=== PATIENT | female | born 1950 | race Caucasian/White ===

== ENCOUNTER 2023-05-11 17:21 | Emergency (ER) | payer OTHER ==
--- OUTSIDE RECORDS SUMMARY | 2023-05-11 17:28 | XMS REPORT | Continuity of Care Document ---
:1950 Author Organization [facility] t Address [address] [place] [id number] Care Team Providers Name Role Phone JUANIS CANALES Primary Care Physician Unavailable Juanis Canales Attending Clinician Unavailable WINSOME HOWARD Attending Clinician Unavailable TEMI CORMIER Attending Clinician Unavailable LAB90 Attending Clinician Unavailable Winsome Diop Attending Clinician YOSELYN ALMODOVAR Attending Clinician Unavailable Only, Ang Db Test Attending Clinician Unavailable Basil Jimenez MD Attending Clinician BASIL JIMENEZ Attending Clinician Unavailable MD ELMIRA Attending Clinician Unavailable Lab, Adc Fam Pob I Attending Clinician Unavailable Loida Perry Attending Clinician LOIDA TUCKER Attending Clinician Unavailable Payers Payer Name Policy Type Policy Number Effective Date Expiration Date S maria esther [employer] 7 [id number] 2020 00:00:00 Mary Care C1 [id number] Common Spiri t [facility] Problems Condition Condition Condition Status Onset Resolution Last Treating Co mments Source Name Details Category Date Date Treatment Clinician Date Gastroesop Gastroesop Disease Active K elsey hageal hageal 4-15 Seybold reflux reflux 00:00: - disease disease 00 Externa l Chronic Chronic Disease Active Mary laryngitis laryngitis 4-15 Se ybold 00:00: - 00 Externa l Chronic Chronic Disease Active Mary obstructiv obstructiv 4-15 Se ybold e e 00:00: pulmonary pulmonary 00 disease disease Bilateral Bilateral Disease Active Melecio y lower lower 4-15 Seybold extremity extremity 00:00: - edema edema 00 Externa l Primary Primary Disease Active Mary hypertensi hypertensi 3-21 Se ybold on on 00:00: - 00 Externa l Hyperlipid Hyperlipid Disease Active Violeta caro emia emia 3- Seybold 00:00: - 00 Externa l Chronic Chronic Disease Active Mary cough cough 06-04 Seybold 00:00: - 00 Externa l Protein-ca Protein-ca Disease Active Violeta shipley violetta 06-03 Seybold malnutriti malnutriti 00:00: on, on, 00 unspecifie unspecifie d severity d severity Simple Simple Disease Active Overview: Mary chronic chronic 4-15 Formattin Seybo ld bronchitis bronchitis 00:00: g of this 00 note might be different from the original. On chronic maint inhalerLa st Assessmen t & Plan: Formattin g of this note might be different from the original. Controlle d Periodic Periodic Disease Active Overview: Elias minawendi headache headache 4-15 Formattin Sey bold syndrome, syndrome, 00:00: g of this - not not 00 note Externa intractabl intractabl might be l e e different from the original. On triamtern e and topiramat eLast Assessmen t & Plan: Formattin g of this note might be different from the original. Controlle d Stage 3a Stage 3a Disease Active Overview: Ke lsey chronic chronic 4-15 Formattin Seybo ld kidney kidney 00:00: g of this - disease disease 00 note Externa might be l different from the original. Due to nsaidsLas t Assessmen t & Plan: Formattin g of this note might be different from the original. Controlle d Allergies Allergies Disease Active Melecio sey 4-15 Seybold 00:00: - 00 Externa l [id number] Stress Problem Active Common incontinen [facility] Allergies, Adverse Reactions, Alerts Allergy Allergy Status Severity Reaction(s) Onset Inactive Treating Comm ents Source Name Type Date Date Clinician Sulfa Propensi Active Nausea and 2018-09 Other Dayana ey Drugs ty to Vomiting 0-17 reaction( Seybo ld adverse 00:00: s): reaction 00 UnknownOt s her reaction( s): Unknown Sulfa Propensi Active Nausea and 2018-09 Other Dayana ey Drugs ty to Vomiting 0-17 reaction( Seybo ld adverse 00:00: s): - reaction 00 UnknownOt Exter na s her l reaction( s): Unknown NO KNOWN Drug Active Univers ALLERGIE Class ity of S [facility] 0 Drug Active Unknown Common allergy [facility] Social History Social Habit Start Date Stop Date Quantity Comments Source Exposure to Yes University of SARS-CoV-2 (event) [facility] Gender identity Mray Beard ybold - External Sexual orientation [address] - External History of Tobacco Common Spirit - Use [facility] Sex Assigned At Common Sp abelardo - [facility] Tobacco use and 2023-02-10 2023-02-10 Smokeless Mary Beard ybold - exposure 00:00:00 00:00:00 tobacco non-user External History of Social 2020-12-27 2020-12-27 Mary Beardybold - function 00:00:00 00:00:00 External Smoking Status Start Date Stop Date Source Unknown if ever smoked [facility] Never smoked tobacco Mary Seyb old - External Medications Ordered Filled Start Stop Current Ordering Indication Dosage Frequency Signature Comments Components Source Medication Medication Date Date Medication? Clinician (SIG) Name Name Vitamin E Yes 100U 1 capsule Melecio y 100 units 5-30 (100 units Seyb old oral 08:30: total) - Capsule 58 every 24 Externa hours l Cholecalcif 0 Yes 1{tbl} 1 tablet Mary cassandra 50 MCG 5-30 every 24 Seyb old (1999) 08:30: hours - oral Tablet 58 Externa l IPRATROPIUM 0 Yes 2{spray 2 sprays Mary BROMIDE NA 5-30 } by nasal Seybo ld 08:30: route 3 - 58 times Externa daily l Calcium-Francesco Yes Take by Melecio veloz sphorus-Vit 5-30 mouth Seybold espinoza D 08:30: - (CITRACAL 58 Externa +D3 OR) l Psyllium Yes Take by Mary (Metamucil) 5-30 mouth Seybold 0.36 g oral 08:30: - Capsule 58 Externa l Probiotic 0 Yes Take by Rosa y Product 5-30 mouth Seybold (Align) 4 08:30: - MG oral 58 Externa Capsule l Acetaminoph 0 Yes 650mg Take 2 Melecio veloz en 5-30 tablets Seybold (TYLENOL) 08:30: (650 mg - 325 MG oral 58 total) by Ext aditi Tablet mouth l tablet every morning Topiramate Yes [id number] 200mg Take 1 Mary 200 MG oral 5-30 tablet Seybol d Tablet 00:00: (200 mg - 00 total) by Externa mouth 2 l times daily Fluconazole 0 2022- No [id number] 150mg Take 1 Mary 150 MG oral 4-25 05-30 tablet Seybo ld Tablet 00:00: 00:00 (150 mg - 00 :00 total) by Externa mouth once l for 1 dose Benzonatate Yes [id number] 100mg Q.[id number] Take 1 Mary (Tessalon 4-24 [id number] capsule S chuckie Franco) 100 00:00: 3D (100 mg - MG oral 00 total) by Externa Capsule mouth 3 l times daily as needed for cough Azithromyci 0 2022- No [id number] Take 2 Mary n 250 MG 4-24 05-30 tablets by Seyb old oral Tablet 00:00: 00:00 mouth on - 00 :00 day 1 then Externa 1 tablet l by mouth daily for 4 days thereafter . methylPREDN 0 2022- No [id number] 1{carlito} Take 1 carlito Hernandez ISolone 4 4-24 05-30 by mouth Seybo ld MG oral 00:00: 00:00 See Admin - Tablet 00 :00 Instructio Externa Therapy ns Use as l Pack directed Valacyclovi 0 Yes [id number] Take 2 K elsey r HCl 1 g 3-22 tabs (at Seybol d oral Tablet 00:00: the onset - 00 of Externa symptoms) l BID for 1 day Triamterene Yes [id number] 1{tbl} Take 1 Mary -HCTZ 1-16 tablet by Seybold 37.5-25 MG 00:00: mouth - oral Tablet 00 daily Externa l NEOMYCIN-PO 2021-09 Yes [id number] 3[drp] Place 3 Mary LYMYXIN-HC, 2-16 drops into Se ybold OTIC, 1 % 00:00: both ears - otic 00 3 times Externa Solution daily l Topiramate 2021-09 202- No [id number] 100mg Take 1 Mary 100 MG oral 0-04 05-30 tablet Seybo ld Tablet 00:00: 00:00 (100 mg - 00 :00 total) by Externa mouth 2 l times daily Sumatriptan Yes [id number] TAKE 1 Mary Succinate 7-25 TABLET BY Seybo ld 100 MG oral 00:00: MOUTH - Tablet 00 DAILY Externa NEEDED FOR l MIGRAINE. guaiFENesin Yes [id number] 5mL Q.[id number] Take 5 mL Mary -Codeine 6-08 [id number] by mouth 3 Seybold 100-10 00:00: 3D times - MG/5ML oral 00 daily as Exte rna Syrup needed for l cough IPRATROPIUM Yes 2{spray 2 sprays Mary BROMIDE NA 6-06 } by nasal Seybo ld 09:00: route 3 29 times daily Vitamin E Yes 1{capsu 1 capsule Mary 100 units 6-06 le} every 24 Seybol d oral 08:49: hours Capsule 41 Cholecalcif Yes 1{tbl} 1 tablet Mary cassandra 50 MCG 6-06 every 24 Seyb old (1999) 08:49: hours oral Tablet 41 Azithromyci 0 Yes [id number] Take 2 Mary n 250 MG 6-06 tablets by Seybo ld oral Tablet 00:00: mouth on 00 day 1 then 1 tablet by mouth daily for 4 days thereafter . Pseudoeph-B Yes [id number] 10mL Q.25D Take 10 mL Mary romphen-DM 6-06 by mouth 4 Sey [facility] ([place] 00:00: times DM) 30-2-10 00 daily as MG/5ML oral needed Syrup Vitamin E Yes 1{capsu 1 capsule Mary 100 units 4-15 le} every 24 Seybol d oral 07:55: hours Capsule 20 Cholecalcif Yes 1{tbl} 1 tablet Mary cassandra 50 MCG 4-15 every 24 Seyb old (1999) 07:55: hours oral Tablet 20 Triamterene Yes [id number] 1{tbl} Take 1 Mary -HCTZ 4-15 tablet by Seybold 37.5-25 MG 00:00: mouth oral Tablet 00 daily Triamterene Yes [id number] 1{tbl} Take 1 Mary -HCTZ 4-15 tablet by Seybold 37.5-25 MG 00:00: mouth oral Tablet 00 daily Albuterol Yes [id number] INHALE 2 Mary HFA 108 (90 4-[address] [facility]) 00:00: INHALATION MCG/ACT IN 00 EVERY 4-6 AERS HOURS NEEDED (CAN USE SPACER) Albuterol 2021- No [id number] INHALE 2 Mary HFA 108 (90 4-06 06-06 PUFFS BY [facility]) 00:00: 00:00 INHALATION MCG/ACT IN 00 :00 EVERY 4-6 AERS HOURS NEEDED (CAN USE SPACER) Triamterene 2021- No [id number] 1{capsu Take 1 Mary -HCTZ 4-05 04-15 le} capsule by Seybold 37.5-25 MG 00:00: 00:00 mouth oral 00 :00 every Capsule morning Loperamide Yes [id number] 2mg Q.25D Take 1 Mary HCl 2 MG 3-21 tablet (2 Seybol d oral Tablet 00:00: mg total) 00 by mouth 4 times daily as needed for diarrhea Loperamide 2021- No [id number] 2mg Q.25D Take 1 Mary HCl 2 MG 3-21 04-15 tablet (2 Seybo ld oral Tablet 00:00: 00:00 mg total) 00 :00 by mouth 4 times daily as needed for diarrhea Azithromyci 2021-0 2- No [id number] Take 2 Mary n 500 MG 3-21 03-26 tablets Seybold oral Tablet 00:00: 04:59 (1,000 mg 00 :00 total) by mouth daily for 1 day, THEN 1 tablet (500 mg total) daily for 3 days. Vitamin E 2021-0 Yes 1{capsu 1 capsule Mary 100 units 2-15 le} every 24 Seybol d oral 07:58: hours Capsule 05 Cholecalcif 2021-0 Yes 1{tbl} 1 tablet Mary cassandra 50 MCG 2-15 every 24 Seyb old (1999) 07:58: hours oral Tablet 05 Vitamin E 2021-0 Yes 1{capsu 1 capsule Mary 100 units 2-15 le} every 24 Seybol d oral 07:58: hours Capsule 05 Cholecalcif 2021-0 Yes 1{tbl} 1 tablet Mary cassandra 50 MCG 2-15 every 24 Seyb old (1999) 07:58: hours oral Tablet 05 Amoxicillin 2021-0 Yes [id number] 1{tbl} Take 1 Mary -Pot 2-15 tablet by Seybold Clavulanate 00:00: mouth 2 875-125 MG 00 times oral Tablet daily Benzonatate 2021-0 Yes [id number] 100mg Q.[id number] Take 1 Mary (Tessalon 2-15 [id number] capsule S eybold Perles) 100 00:00: 3D (100 mg MG oral 00 total) by Capsule mouth 3 times daily as needed for cough Guaifenesin 2021-0 Yes [id number] 1{tbl} Take 1 Mary 1200 MG 2-15 tablet by Seybold oral Tablet 00:00: mouth 2 12 Hour 00 times Sustained daily Release Benzonatate 2021-0 Yes [id number] 100mg Q.[id number] Take 1 Mary (Tessalon 2-15 [id number] capsule S eybold Perles) 100 00:00: 3D (100 mg MG oral 00 total) by Capsule mouth 3 times daily as needed for cough Guaifenesin 2021-0 Yes [id number] 1{tbl} Take 1 Mary 1200 MG 2-15 tablet by Seybold oral Tablet 00:00: mouth 2 12 Hour 00 times Sustained daily Release Benzonatate 2021- No [id number] 100mg Q.[id number] Take 1 Mary (Tessalon 2-15 -15 [id number] capsule Seybold Joan) 100 00:00: 00:00 3D (100 mg MG oral 00 :00 total) by Capsule mouth 3 times daily as needed for cough Guaifenesin 2021- No [id number] 1{tbl} Take 1 Mary 1200 MG 2-15 -15 tablet by Seybol d oral Tablet 00:00: 00:00 mouth 2 12 Hour 00 :00 times Sustained daily Release Amoxicillin 2021- No [id number] 1{tbl} Take 1 Mary -Pot 2-15 -21 tablet by Seybold Clavulanate 00:00: 00:00 mouth 2 875-125 MG 00 :00 times oral Tablet daily Fluconazole 2021- No [id number] 150mg Take 1 Mary 150 MG oral 2-15 16 tablet Seybo ld Tablet 00:00: 05:59 (150 mg 00 :00 total) by mouth once for 1 dose Advair HFA Yes INHALE 2 Melecio sey 115-21 1-11 PUFFS BY Seybold MCG/ACT 00:00: MOUTH inhalation 00 TWICE A Aerosol DAY IN THE MORNING AND EVENING. RINSE MOUTH AFTER USE Omeprazole 2021-0 Yes TAKE 1 Kelse y 20 MG oral 1-11 CAPSULE BY Sey bold Delayed 00:00: MOUTH Release 00 EVERY DAY Capsule 30-60 MINUTES BEFORE A MEAL Advair HFA 2021-0 Yes INHALE 2 Melecio sey 115-21 1-11 PUFFS BY Seybold MCG/ACT 00:00: MOUTH inhalation 00 TWICE A Aerosol DAY IN THE MORNING AND EVENING. RINSE MOUTH AFTER USE Omeprazole 2021-0 Yes TAKE 1 Kelse y 20 MG oral 1-11 CAPSULE BY Sey bold Delayed 00:00: MOUTH Release 00 EVERY DAY Capsule 30-60 MINUTES BEFORE A MEAL Advair HFA 2021-0 Yes INHALE 2 Melecio sey 115-21 1-11 PUFFS BY Seybold MCG/ACT 00:00: MOUTH inhalation 00 TWICE A Aerosol DAY IN THE MORNING AND EVENING. RINSE MOUTH AFTER USE Omeprazole 2022-0 Yes TAKE 1 Kelse y 20 MG oral 1-11 CAPSULE BY Sey bold Delayed 00:00: MOUTH Release 00 EVERY DAY Capsule 30-60 MINUTES BEFORE A MEAL Omeprazole Yes TAKE 1 Kelse y 20 MG oral 1-11 CAPSULE BY Sey bold Delayed 00:00: MOUTH Release 00 EVERY DAY Capsule 30-60 MINUTES BEFORE A MEAL Omeprazole Yes TAKE 1 Kelse y 20 MG oral 1-11 CAPSULE BY Sey bold Delayed 00:00: MOUTH - Release 00 EVERY DAY Externa Capsule 30-60 l MINUTES BEFORE A MEAL Advair HFA 2021- No INHALE 2 Ke lsey 115-21 -11 06-06 PUFFS BY Seybold MCG/ACT 00:00: 00:00 MOUTH inhalation 00 :00 TWICE A Aerosol DAY IN THE MORNING AND EVENING. RINSE MOUTH AFTER USE Ceftriaxone 2020-09- No [id number] 1g K elsey Sodium 208-21 Seybold (ROCEPHIN) 15:15: 15:20 1 g 00 :00 Ceftriaxone 2020-09- No [id number] 1g 1 g, K elsey Sodium 2-04 25-08 intramuscu Seybol d (ROCEPHIN) 15:15: 15:20 lar, ONCE, 1 g 00 :00 1 dose, On Thu08/21/21 at 0915
Fo r IM preparatio n, each 1 gram vial diluted with 2.1 mL 1% lidocaine to make 350 mg/mL. Inject desired dose IM.
Vitamin E 2020-09 Yes 1{capsu 1 capsule Mary 100 units 2-08 le} every 24 Seybol d oral 08:52: hours Capsule 43 Cholecalcif 2020-09 Yes 1{tbl} 1 tablet Mary cassandra 50 MCG 2-08 every 24 Seyb old (1999) 08:52: hours oral Tablet 43 Benzonatate 2020-09 Yes [id number] 100mg Q.[id number] Take 1 Mary (Tessalon 2-08 [id number] capsule S eybold Ebaura) 100 00:00: 3D (100 mg MG oral 00 total) by Capsule mouth 3 times daily as needed for cough Guaifenesin 2020-09 Yes [id number] 1{tbl} Take 1 Mary 1200 MG 2-08 tablet by Seybold oral Tablet 00:00: mouth 2 12 Hour 00 times Sustained daily Release methylPREDN 2020-09 Yes [id number] 1{carlito} Take 1 carlito Mary ISolone 4 2-08 by mouth Seybol d MG oral 00:00: See Admin Tablet 00 Instructio Therapy ns Use as Pack directed methylPREDN 2020- Yes [id number] 1{carlito} Take 1 carlito Mary ISolone 4 2-08 by mouth Seybol d MG oral 00:00: See Admin Tablet 00 Instructio Therapy ns Use as Pack directed methylPREDN 2020-09 Yes [id number] 1{carlito} Take 1 carlito Mary ISolone 4 2-08 by mouth Seybol d MG oral 00:00: See Admin Tablet 00 Instructio Therapy ns Use as Pack directed methylPREDN 2020-09- No [id number] 1{carlito} Take 1 carlito Mary ISolone 4 2-08 04-15 by mouth Seybo ld MG oral 00:00: 00:00 See Admin Tablet 00 :00 Instructio Therapy ns Use as Pack directed Benzonatate 2020-09- No [id number] 100mg Q.[id number] Take 1 Mary (Tessalon 2-08 02-15 [id number] capsule Seybold Perles) 100 00:00: 00:00 3D (100 mg MG oral 00 :00 total) by Capsule mouth 3 times daily as needed for cough Guaifenesin 2020-09- No [id number] 1{tbl} Take 1 Mary 1200 MG 2-08 02-15 tablet by Seybol d oral Tablet 00:00: 00:00 mouth 2 12 Hour 00 :00 times Sustained daily Release Nystatin 2020-09 Yes [id number] Take 5 mL Mary (Nystatin) 2-06 (500,000 Seybo ld 338141 00:00: units UNIT/ML 00 total) by mouth/throa mouth 4 t times Suspension daily Nystatin 2020-09 Yes [id number] Take 5 mL Mary (Nystatin) 2-06 (500,000 Seybo ld [id number] 00:00: units UNIT/ML 00 total) by mouth/throa mouth 4 t times Suspension daily Nystatin 2020-09 Yes [id number] Take 5 mL Mary (Nystatin) 2-06 (500,000 Seybo ld 133047 00:00: units UNIT/ML 00 total) by mouth/throa mouth 4 t times Suspension daily Nystatin 2020-09- No [id number] Take 5 mL Mary (Nystatin) 2-06 04-15 (500,000 Seyb old [id number] 00:00: 00:00 units UNIT/ML 00 :00 total) by mouth/throa mouth 4 t times Suspension daily Sumatriptan 2020-09 Yes [id number] 100mg Q24H TAKE 1 Mary Succinate 1-03 TABLET Seybold 100 MG oral 00:00: (100 MG Tablet 00 TOTAL) BY MOUTH DAILY NEEDED FOR MIGRAINE Sumatriptan 2020-09 Yes [id number] 100mg Q24H TAKE 1 Mary Succinate 1-03 TABLET Seybold 100 MG oral 00:00: (100 MG Tablet 00 TOTAL) BY MOUTH DAILY NEEDED FOR MIGRAINE Sumatriptan 2020-09 Yes [id number] 100mg QD TAKE 1 Mary Succinate 1-03 TABLET Seybold 100 MG oral 00:00: (100 MG Tablet 00 TOTAL) BY MOUTH DAILY NEEDED FOR MIGRAINE Sumatriptan 2020-09 Yes [id number] 100mg QD TAKE 1 Mary Succinate 1-03 TABLET Seybold 100 MG oral 00:00: (100 MG Tablet 00 TOTAL) BY MOUTH DAILY NEEDED FOR MIGRAINE Sumatriptan 2020-09 Yes [id number] 100mg QD TAKE 1 Mary Succinate 1-03 TABLET Seybold 100 MG oral 00:00: (100 MG Tablet 00 TOTAL) BY MOUTH DAILY NEEDED FOR MIGRAINE Nitrofurant 2020-09- No [id number] 100mg Take 1 Mary oin Monohyd 1-01 11-07 capsule Seyb old Macro 100 00:00: 04:59 (100 mg MG oral 00 :00 total) by Capsule mouth 2 times daily for 5 days Nitrofurant 2020-09 Yes [id number] 100mg Take 1 Mary oin Monohyd 0-04 capsule Seybo ld Macro 00:00: (100 mg (Macrobid) 00 total) by 100 MG oral mouth 2 Capsule times daily Nitrofurant 2020-09 Yes [id number] 100mg Take 1 Mary oin Monohyd 0-04 capsule Seybo ld Macro 00:00: (100 mg (Macrobid) 00 total) by 100 MG oral mouth 2 Capsule times daily Nitrofurant 2020-09 Yes [id number] 100mg Take 1 Mary oin Monohyd 0-04 capsule Seybo ld Macro 00:00: (100 mg (Macrobid) 00 total) by 100 MG oral mouth 2 Capsule times daily Nitrofurant 2020-09 Yes [id number] 100mg Take 1 Mary oin Monohyd 0-04 capsule Seybo ld Macro 00:00: (100 mg (Macrobid) 00 total) by 100 MG oral mouth 2 Capsule times daily Nitrofurant 2020-09 Yes [id number] 100mg Take 1 Mary oin Monohyd 0-04 capsule Seybo ld Macro 00:00: (100 mg (Macrobid) 00 total) by 100 MG oral mouth 2 Capsule times daily Nitrofurant 2020-092- No [id number] 100mg Take 1 Mary oin Monohyd 0-04 04-15 capsule Seyb old Macro 00:00: 00:00 (100 mg (Macrobid) 00 :00 total) by 100 MG oral mouth 2 Capsule times daily Azelastine 2020-09 Yes APPLY 2 Dayana ey HCl 0.1 % 0-01 SPRAY BY Seybol d nasal 00:00: NASAL Solution 00 ROUTE 2 TIMES A DAY IN EACH NOSTRIL. THIS IS AN ANTIHISTAM INE NASAL SPRAY Azelastine 2020-09 Yes APPLY 2 Dayana ey HCl 0.1 % 0-01 SPRAY BY Seybol d nasal 00:00: NASAL Solution 00 ROUTE 2 TIMES A DAY IN EACH NOSTRIL. THIS IS AN ANTIHISTAM INE NASAL SPRAY Azelastine 2020-09 Yes APPLY 2 Dayana ey HCl 0.1 % 0-01 SPRAY BY Seybol d nasal 00:00: NASAL Solution 00 ROUTE 2 TIMES A DAY IN EACH NOSTRIL. THIS IS AN ANTIHISTAM INE NASAL SPRAY Azelastine 2020-09 Yes APPLY 2 Dayana ey HCl 0.1 % 0-01 SPRAY BY Seybol d nasal 00:00: NASAL Solution 00 ROUTE 2 TIMES A DAY IN EACH NOSTRIL. THIS IS AN ANTIHISTAM INE NASAL SPRAY Azelastine 2020-09 Yes APPLY 2 Dayana ey HCl 0.1 % 0-01 SPRAY BY Seybol d nasal 00:00: NASAL Solution 00 ROUTE 2 TIMES A DAY IN EACH NOSTRIL. THIS IS AN ANTIHISTAM INE NASAL SPRAY Azelastine 2020-09 Yes APPLY 2 Dayana ey HCl 0.1 % 0-01 SPRAY BY Seybol d nasal 00:00: NASAL Solution 00 ROUTE 2 TIMES A DAY IN EACH NOSTRIL. THIS IS AN ANTIHISTAM INE NASAL SPRAY Azelastine 2020-09- No APPLY 2 Melecio sey HCl 0.1 % 0-01 06-06 SPRAY BY Seybo ld nasal 00:00: 00:00 NASAL Solution 00 :00 ROUTE 2 TIMES A DAY IN EACH NOSTRIL. THIS IS AN ANTIHISTAM INE NASAL SPRAY Omeprazole 0 Yes Mary 40 MG oral 9-20 Seybold Delayed 00:00: Release 00 Capsule Omeprazole 2020-0 Yes Mary 40 MG oral 9-20 Seybold Delayed 00:00: Release 00 Capsule Omeprazole 2020-0 Yes Mary 40 MG oral 9-20 Seybold Delayed 00:00: Release 00 Capsule Omeprazole 2020-0 Yes Mary 40 MG oral 9-20 Seybold Delayed 00:00: Release 00 Capsule Omeprazole 1-0 Yes Mary 40 MG oral 9-20 Seybold Delayed 00:00: Release 00 Capsule Omeprazole 1-0 Yes Mary 40 MG oral 9-20 Seybold Delayed 00:00: Release 00 Capsule Omeprazole 2021-0 2- No Mayr 40 MG oral 9-20 04-15 Seybold Delayed 00:00: 00:00 Release 00 :00 Capsule Denta 5000 0 Yes APPLY PEA Ke lsey Plus 1.1 % 6-29 SIZED Seybold dental 00:00: AMOUNT TO Cream 00 TOOTHBRUSH AND BRUSH FOR 2 MINUTES THEN RINSE WELL TWICE A DAY. Denta 49990 Yes APPLY PEA Ke lsey Plus 1.1 % 6-29 SIZED Seybold dental 00:00: AMOUNT TO Cream 00 TOOTHBRUSH AND BRUSH FOR 2 MINUTES THEN RINSE WELL TWICE A DAY. Denta 5000 0 Yes APPLY PEA Ke lsey Plus 1.1 % 6-29 SIZED Seybold dental 00:00: AMOUNT TO Cream 00 TOOTHBRUSH AND BRUSH FOR 2 MINUTES THEN RINSE WELL TWICE A DAY. Denta 4999 Yes APPLY PEA Ke lsey Plus 1.1 % 6-29 SIZED Seybold dental 00:00: AMOUNT TO Cream 00 TOOTHBRUSH AND BRUSH FOR 2 MINUTES THEN RINSE WELL TWICE A DAY. Denta 4999 Yes APPLY PEA Ke lsey Plus 1.1 % 6-29 SIZED Seybold dental 00:00: AMOUNT TO Cream 00 TOOTHBRUSH AND BRUSH FOR 2 MINUTES THEN RINSE WELL TWICE A DAY. Denta 4999 Yes APPLY PEA Ke lsey Plus 1.1 % 6-29 SIZED Seybold dental 00:00: AMOUNT TO Cream 00 TOOTHBRUSH AND BRUSH FOR 2 MINUTES THEN RINSE WELL TWICE A DAY. Denta 4999- No APPLY PEA K elsey Plus 1.1 % 6-29 04-15 SIZED Seybold dental 00:00: 00:00 AMOUNT TO Cream 00 :00 TOOTHBRUSH AND BRUSH FOR 2 MINUTES THEN RINSE WELL TWICE A DAY. Montelukast Yes [id number] 10mg Take 1 Mary (Singulair) 5-17 tablet (10 Se ybold 10 MG oral 00:00: mg total) Tablet 00 by mouth tablet nightly Montelukast Yes [id number] 10mg Take 1 Mary (Singulair) 5-17 tablet (10 Se ybold 10 MG oral 00:00: mg total) Tablet 00 by mouth tablet nightly Montelukast Yes [id number] 10mg Take 1 Mary (Singulair) 5-17 tablet (10 Se ybold 10 MG oral 00:00: mg total) Tablet 00 by mouth tablet nightly Montelukast 0 Yes [id number] 10mg Take 1 Mary (Singulair) 5-17 tablet (10 Se ybold 10 MG oral 00:00: mg total) Tablet 00 by mouth tablet nightly Montelukast Yes [id number] 10mg Take 1 Mary (Singulair) 5-17 tablet (10 Se ybold 10 MG oral 00:00: mg total) Tablet 00 by mouth tablet nightly Montelukast 0 Yes [id number] 10mg Take 1 Mary (Singulair) 5-17 tablet (10 Se ybold 10 MG oral 00:00: mg total) Tablet 00 by mouth tablet nightly Montelukast 0 2- No [id number] 10mg Take 1 Mary (Singulair) 5-17 04-15 tablet (10 S eybold 10 MG oral 00:00: 00:00 mg total) Tablet 00 :00 by mouth tablet nightly Sumatriptan Yes [id number] 100mg Q24H Take 1 Mary Succinate 4-23 tablet Seybold 100 MG oral 00:00: (100 mg Tablet 00 total) by mouth daily as needed for migraine Sumatriptan Yes [id number] 100mg Q24H Take 1 Mary Succinate 4-23 tablet Seybold 100 MG oral 00:00: (100 mg Tablet 00 total) by mouth daily as needed for migraine Sumatriptan Yes [id number] 100mg Q24H Take 1 Mary Succinate 4-23 tablet Seybold 100 MG oral 00:00: (100 mg Tablet 00 total) by mouth daily as needed for migraine Topiramate Yes [id number] 100mg Take 1 Mary 100 MG oral 4-15 tablet Seybol d Tablet 00:00: (100 mg 00 total) by mouth 2 times daily Triamterene Yes [id number] 1{capsu Take 1 Mary -HCTZ 4-15 le} capsule by Seybold 37.5-25 MG 00:00: mouth oral 00 every Capsule morning Fluticasone Yes [id number] 1{puff} Inhale 1 Mary Furoate-Carol 4-15 puff into Sey bold anterol 00:00: the lungs (Breo 00 daily Ellipta) 100-25 MCG/INH inhalation AEROSOL POWDER, BREATH ACTIVATED Topiramate Yes [id number] 100mg Take 1 Mary 100 MG oral 4-15 tablet Seybol d Tablet 00:00: (100 mg 00 total) by mouth 2 times daily Triamterene Yes [id number] 1{capsu Take 1 Mary -HCTZ 4-15 le} capsule by Seybold 37.5-25 MG 00:00: mouth oral 00 every Capsule morning Fluticasone Yes [id number] 1{puff} Inhale 1 Mary Furoate-Carol 4-15 puff into Sey bold anterol 00:00: the lungs (Breo 00 daily Ellipta) 100-25 MCG/INH inhalation AEROSOL POWDER, BREATH ACTIVATED Topiramate 2020-0 Yes [id number] 100mg Take 1 Mary 100 MG oral 4-15 tablet Seybol d Tablet 00:00: (100 mg 00 total) by mouth 2 times daily Triamterene 2020-0 Yes [id number] 1{capsu Take 1 Mary -HCTZ 4-15 le} capsule by Seybold 37.5-25 MG 00:00: mouth oral 00 every Capsule morning Fluticasone 2020-0 Yes [id number] 1{puff} Inhale 1 Mary Furoate-Carol 4-15 puff into Sey bold anterol 00:00: the lungs (Breo 00 daily Ellipta) 100-25 MCG/INH inhalation AEROSOL POWDER, BREATH ACTIVATED Topiramate 2020-0 Yes [id number] 100mg Take 1 Mary 100 MG oral 4-15 tablet Seybol d Tablet 00:00: (100 mg 00 total) by mouth 2 times daily Topiramate 2020-0 Yes [id number] 100mg Take 1 Mary 100 MG oral 4-15 tablet Seybol d Tablet 00:00: (100 mg 00 total) by mouth 2 times daily Topiramate 2020-0 Yes [id number] 100mg Take 1 Amry 100 MG oral 4-15 tablet Seybol d Tablet 00:00: (100 mg 00 total) by mouth 2 times daily Triamterene 2020-0 Yes [id number] 1{capsu Take 1 Mary -HCTZ 4-15 le} capsule by Seybold 37.5-25 MG 00:00: mouth oral 00 every Capsule morning Fluticasone 2020-0 Yes [id number] 1{puff} Inhale 1 Mary Furoate-Carol 4-15 puff into Sey bold anterol 00:00: the lungs (Breo 00 daily Ellipta) 100-25 MCG/INH inhalation AEROSOL POWDER, BREATH ACTIVATED Topiramate 2020-0 Yes [id number] 100mg Take 1 Mary 100 MG oral 4-15 tablet Seybol d Tablet 00:00: (100 mg 00 total) by mouth 2 times daily Triamterene 2021-0 Yes [id number] 1{capsu Take 1 Mary -HCTZ 4-15 le} capsule by Seybold 37.5-25 MG 00:00: mouth oral 00 every Capsule morning Fluticasone Yes [id number] 1{puff} Inhale 1 Mary Furoate-Carol 4-15 puff into Sey bold anterol 00:00: the lungs (Breo 00 daily Ellipta) 100-25 MCG/INH inhalation AEROSOL POWDER, BREATH ACTIVATED Topiramate Yes [id number] 100mg Take 1 Mary 100 MG oral 4-15 tablet Seybol d Tablet 00:00: (100 mg 00 total) by mouth 2 times daily Triamterene Yes [id number] 1{capsu Take 1 Mary -HCTZ 4-15 le} capsule by Seybold 37.5-25 MG 00:00: mouth oral 00 every Capsule morning Fluticasone Yes [id number] 1{puff} Inhale 1 Mary Furoate-Carol 4-15 puff into Sey bold anterol 00:00: the lungs (Breo 00 daily Ellipta) 100-25 MCG/INH inhalation AEROSOL POWDER, BREATH ACTIVATED Fluticasone 2022- No [id number] 1{puff} Inhale 1 Mary Furoate-Carol 4-15 04-15 puff into Se old anterol 00:00: 00:00 the lungs (Breo 00 :00 daily Ellipta) 100-25 MCG/INH inhalation AEROSOL POWDER, BREATH ACTIVATED Cefdinir Cefdinir Yes [place] not Comm on Amaya defined [facility] MethylPREDN MethylPREDN Yes [place] not Common ISolone ISolone Amaya defined [facility] Alprazolam Alprazolam Yes [place] not Common Amaya defined [facility] Trophamine Trophamine Yes [place] not Common Amaya defined [facility] Triamterene Triamterene Yes [place] not Common -HCTZ -HCTZ Amaya defined [facility] Sumatriptan Sumatriptan Yes [place] not Common Amaya defined [facility] tylenol tylenol No tylenol Triamterene Triamterene No Triamteren -HCTZ -HCTZ e-HCTZ Trophamine Trophamine No Trophamine SUMAtriptan SUMAtriptan No SUMAtripta n Vitamin D Vitamin D No 1{table QD Vitamin D 50 MCG 50 MCG t} 50 MCG (1999 UT) (1999 UT) (1999) Cefdinir Cefdinir No Cefdinir methylPREDN methylPREDN No methylPRED ISolone ISolone NISolone Vitamin E Vitamin E No 1{capsu QD Vitamin E 100 UNIT 100 UNIT le} 100 UNIT Citracal + Citracal + No Citracal + D D D ALPRAZolam ALPRAZolam No ALPRAZolam Immunizations Ordered Immunization Filled Immunization Date Status Commen ts Source Name Name Influenza Virus 2022-05-23 Completed Mary Beard ybold Vaccine, High Dose, 00:00:00 - Ext ernal Age 65 And Up Covid-19 Vaccine 2022-01-07 Completed Mary noguera Other 00:00:00 Covid-19 Vaccine 2022-01-07 Completed Mary noguera Other 00:00:00 - External Influenza Virus 2021-05-01 Completed Mary Se ybold Vaccine, High Dose, 00:00:00 Age 65 And Up Influenza Virus 2021-05-01 Completed Mary Se ybold Vaccine, High Dose, 00:00:00 Age 65 And Up Influenza Virus 2021-05-01 Completed Mary Se ybold Vaccine, High Dose, 00:00:00 Age 65 And Up Influenza Virus 2021-05-01 Completed Mary Se ybold Vaccine, High Dose, 00:00:00 Age 65 And Up Influenza Virus 2021-05-01 Completed Mary Se ybold Vaccine, High Dose, 00:00:00 Age 65 And Up Influenza Virus 2021-05-01 Completed Mary Se ybold Vaccine, High Dose, 00:00:00 Age 65 And Up Influenza Virus 2021-05-01 Completed Mary Se ybold Vaccine, High Dose, 00:00:00 - Ext ernal Age 65 And Up Influenza Virus 2021-05-01 Completed Mary Se ybold Vaccine, High Dose, 00:00:00 Age 65 And Up Influenza Virus 2021-05-01 Completed Mary Se ybold Vaccine, High Dose, 00:00:00 Age 65 And Up Covid-19 Vaccine 2020-12-11 Completed Mary noguera (Moderna), Mrna-lnp, 00:00:00 Ramesh Protein, Pf, 100 Mcg/0.5ml,IM Covid-19 Vaccine 2020-12-11 Completed Mary adamebold (Moderna), Mrna-lnp, 00:00:00 Ramesh Protein, Pf, 100 Mcg/0.5ml,IM Covid-19 Vaccine 2020-12-11 Completed Mary adamebold (Moderna), Mrna-lnp, 00:00:00 Ramesh Protein, Pf, 100 Mcg/0.5ml,IM Covid-19 Vaccine 2020-12-11 Completed Mary adamebold (Moderna), Mrna-lnp, 00:00:00 Ramesh Protein, Pf, 100 Mcg/0.5ml,IM Covid-19 Vaccine 2020-12-11 Completed Mary adamekemi Moderna (Spikevax), 00:00:00 Mrna-lnp, Ramesh Protein, Pf Covid-19 Vaccine 2020-12-11 Completed Mary adamefidenciold Moderna (Spikevax), 00:00:00 Mrna-lnp, Ramesh Protein, Pf Covid-19 Vaccine 2020-12-11 Completed Mary adamefidenciold Moderna (Spikevax), 00:00:00 Mrna-lnp, Ramesh Protein, Pf Covid-19 Vaccine 2020-12-11 Completed Mary adamefidenciold Moderna (Spikevax), 00:00:00 Mrna-lnp, Ramesh Protein, Pf Covid-19 Vaccine 2020-12-11 Completed Mary adamefidenciold Moderna (Spikevax), 00:00:00 - Ext ernal Mrna-lnp, Ramesh Protein, Pf Covid-19 Vaccine 2020-12-11 Completed Mary adamebold (Moderna), Mrna-lnp, 00:00:00 Ramesh Protein, Pf, 100 Mcg/0.5ml,IM Covid-19 Vaccine 2020-12-11 Completed Mary adamebold (Moderna), Mrna-lnp, 00:00:00 Ramesh Protein, Pf, 100 Mcg/0.5ml,IM Covid-19 Vaccine 2020-12-11 Completed Mary adamebold (Moderna), Mrna-lnp, 00:00:00 Ramesh Protein, Pf, 100 Mcg/0.5ml,IM Covid-19 Vaccine 2020-12-11 Completed Mary adamebold (Moderna), Mrna-lnp, 00:00:00 Ramesh Protein, Pf, 100 Mcg/0.5ml,IM Covid-19 Vaccine 2020-11-15 Completed Mary Hillman eybold (Moderna), Mrna-lnp, 00:00:00 Ramesh Protein, Pf, 100 Mcg/0.5ml,IM Covid-19 Vaccine 2020-11-15 Completed Mary Hillman eybold (Moderna), Mrna-lnp, 00:00:00 Ramesh Protein, Pf, 100 Mcg/0.5ml,IM Covid-19 Vaccine 2020-11-15 Completed Mary Hillman eybold (Moderna), Mrna-lnp, 00:00:00 Ramesh Protein, Pf, 100 Mcg/0.5ml,IM Covid-19 Vaccine 2020-11-15 Completed Mary adamebold (Moderna), Mrna-lnp, 00:00:00 Ramesh Protein, Pf, 100 Mcg/0.5ml,IM Covid-19 Vaccine 2020-11-15 Completed Mary adamebold Moderna (Spikevax), 00:00:00 Mrna-lnp, Ramesh Protein, Pf Covid-19 Vaccine 2020-11-15 Completed Mary noguera Moderna (Spikevax), 00:00:00 Mrna-lnp, Ramesh Protein, Pf Covid-19 Vaccine 2020-11-15 Completed Mary noguera Moderna (Spikevax), 00:00:00 Mrna-lnp, Ramesh Protein, Pf Covid-19 Vaccine 2020-11-15 Completed Mary Hillman eybodariusz Moderna (Spikevax), 00:00:00 Mrna-lnp, Ramesh Protein, Pf Covid-19 Vaccine 2020-11-15 Completed Mary Hillman eybold Moderna (Spikevax), 00:00:00 - Ext ernal Mrna-lnp, Ramesh Protein, Pf Covid-19 Vaccine 2020-11-15 Completed Mary Hillman eybold (Moderna), Mrna-lnp, 00:00:00 Ramesh Protein, Pf, 100 Mcg/0.5ml,IM Covid-19 Vaccine 2020-11-15 Completed Mary Hillman eybold (Moderna), Mrna-lnp, 00:00:00 Ramesh Protein, Pf, 100 Mcg/0.5ml,IM Covid-19 Vaccine 2020-11-15 Completed Mary S eybold (Moderna), Mrna-lnp, 00:00:00 Ramesh Protein, Pf, 100 Mcg/0.5ml,IM Covid-19 Vaccine 2020-11-15 Completed Mary Tahira adamebold (Moderna), Mrna-lnp, 00:00:00 Ramesh Protein, Pf, 100 Mcg/0.5ml,IM Pneumococcal Vaccine, 2019-05-01 Completed Melecio sey Seybold Polysaccharide 00:00:00 Pneumococcal Vaccine, 2019-05-01 Completed Melecio sey Seybold Polysaccharide 00:00:00 Pneumococcal Vaccine, 2019-05-01 Completed Melecio sey Seybold Polysaccharide 00:00:00 Pneumococcal Vaccine, 2019-05-01 Completed Melecio sey Seybold Polysaccharide 00:00:00 Pneumococcal Vaccine, 2019-05-01 Completed Melecio sey Seybold Polysaccharide 00:00:00 Pneumococcal Vaccine, 2019-05-01 Completed Melecio sey Seybold Polysaccharide 00:00:00 Pneumococcal Vaccine, 2019-05-01 Completed Melecio sey Seybold Polysaccharide 00:00:00 - External Pneumococcal Vaccine, 2019-05-01 Completed Melecio sey Seybold Polysaccharide 00:00:00 Pneumococcal Vaccine, 2019-05-01 Completed Melecio sey Seybold Polysaccharide 00:00:00 Shingles IM 2019-03-12 Completed Mary Seybol d (Shingrix) 00:00:00 Shingles IM 2019-03-12 Completed Mary Seybol d (Shingrix) 00:00:00 Shingles IM 2019-03-12 Completed Mary Seybol d (Shingrix) 00:00:00 Shingles IM 2019-03-12 Completed Mary Seybol d (Shingrix) 00:00:00 Shingles IM 2019-03-12 Completed Mary Seybol d (Shingrix) 00:00:00 Shingles IM 2019-03-12 Completed Mary Seybol d (Shingrix) 00:00:00 Shingles IM 2019-03-12 Completed Mary Seybol d (Shingrix) 00:00:00 - External Shingles IM 2019-03-12 Completed Mary Seybol d (Shingrix) 00:00:00 Shingles IM 2019-03-12 Completed Mary Seybol d (Shingrix) 00:00:00 Influenza Virus 2018-09-14 Completed Mary Se ybold Vaccine, age 6 months 00:00:00 and up Influenza Virus 2018-09-14 Completed Mary Se ybold Vaccine, age 6 months 00:00:00 and up Influenza Virus 2018-09-14 Completed Mary Se ybold Vaccine, age 6 months 00:00:00 and up Influenza Virus 2018-09-14 Completed Mary Se ybold Vaccine, age 6 months 00:00:00 and up Influenza Virus 2018-09-14 Completed Mary Se ybold Vaccine, age 6 months 00:00:00 and up Influenza Virus 2018-09-14 Completed Mary Se ybold Vaccine, age 6 months 00:00:00 and up Influenza Virus 2018-09-14 Completed Mary Se ybold Vaccine, age 6 months 00:00:00 - E xternal and up Influenza Virus 2018-09-14 Completed Mary Se ybold Vaccine, age 6 months 00:00:00 and up Influenza Virus 2018-09-14 Completed Mary Se ybold Vaccine, age 6 months 00:00:00 and up Pneumococcal Vaccine, 2018-03-16 Completed Melecio sey Seybold Polysaccharide 00:00:00 Pneumococcal Vaccine, 2018-03-16 Completed Melecio sey Seybold Polysaccharide 00:00:00 Pneumococcal Vaccine, 2018-03-16 Completed Melecio sey Seybold Polysaccharide 00:00:00 Pneumococcal Vaccine, 2018-03-16 Completed Melecio sey Seybold Polysaccharide 00:00:00 Pneumococcal Vaccine, 2018-03-16 Completed Melecio sey Seybold Polysaccharide 00:00:00 Pneumococcal Vaccine, 2018-03-16 Completed Melecio sey Seybold Polysaccharide 00:00:00 Pneumococcal Vaccine, 2018-03-16 Completed Melecio sey Seybold Polysaccharide 00:00:00 - External Pneumococcal Vaccine, 2018-03-16 Completed Melecio sey Seybold Polysaccharide 00:00:00 Pneumococcal Vaccine, 2018-03-16 Completed Melecio sey Seybold Polysaccharide 00:00:00 Tdap- (Boostrix, 2018-03-15 Completed Mary hurstld Adacel) 00:00:00 Tdap- (Boostrix, 2018-03-15 Completed Mary S eybold Adacel) 00:00:00 Tdap- (Boostrix, 2018-03-15 Completed Mary S eybold Adacel) 00:00:00 Tdap- (Boostrix, 2018-03-15 Completed Mary S eybold Adacel) 00:00:00 Tdap- (Boostrix, 2018-03-15 Completed Mary S eybold Adacel) 00:00:00 Tdap- (Boostrix, 2018-03-15 Completed Mary S eybold Adacel) 00:00:00 Tdap- (Boostrix, 2018-03-15 Completed Mary S eybold Adacel) 00:00:00 Tdap- (Boostrix, 2018-03-15 Completed Mary S eybold Adacel) 00:00:00 - External Tdap- (Boostrix, 2018-03-15 Completed Mary S eybold Adacel) 00:00:00 Shingles IM 2017-09-14 Completed Mary Seybol d (Shingrix) 00:00:00 Shingles IM 2017-09-14 Completed Mary Seybol d (Shingrix) 00:00:00 Shingles IM 2017-09-14 Completed Mary Seybol d (Shingrix) 00:00:00 Shingles IM 2017-09-14 Completed Mary Seybol d (Shingrix) 00:00:00 Shingles IM 2017-09-14 Completed Mary Seybol d (Shingrix) 00:00:00 Shingles IM 2017-09-14 Completed Mary Seybol d (Shingrix) 00:00:00 Shingles IM 2017-09-14 Completed Mary Seybol d (Shingrix) 00:00:00 - External Shingles IM 2017-09-14 Completed Mary Seybol d (Shingrix) 00:00:00 Shingles IM 2017-09-14 Completed Mary Seybol d (Shingrix) 00:00:00 Influenza Virus 2016-05-18 Completed Mary Se ybold Vaccine, age 6 months 00:00:00 and up Influenza Virus 2016-05-18 Completed Mary Se ybold Vaccine, age 6 months 00:00:00 and up Influenza Virus 2016-05-18 Completed Mary Se ybold Vaccine, age 6 months 00:00:00 and up Influenza Virus 2016-05-18 Completed Mary Se ybold Vaccine, age 6 months 00:00:00 and up Influenza Virus 2016-05-18 Completed Mary Se ybold Vaccine, age 6 months 00:00:00 and up Influenza Virus 2016-05-18 Completed Mary Se ybold Vaccine, age 6 months 00:00:00 and up Influenza Virus 2016-05-18 Completed Mary Se ybold Vaccine, age 6 months 00:00:00 and up Influenza Virus 2016-05-18 Completed Mary Se ybold Vaccine, age 6 months 00:00:00 - E xternal and up Influenza Virus 2016-05-18 Completed Mary Se ybold Vaccine, age 6 months 00:00:00 and up Vital Signs Vital Name Observation Time Observation Value Comments Source Systolic blood 2023-02-10 13:23:00 108 mm[Hg] Mary Seybold - pressure External Diastolic blood 2023-02-10 13:23:00 60 mm[Hg] Rosa wong Seybold - pressure External Heart rate 2023-02-10 13:23:00 60 /min Mary Tahira adamebodariusz - External Body temperature 2023-02-10 13:23:00 36.56 Radha Dayana adame Seybold - External Respiratory rate 2023-02-10 13:23:00 16 /min Dayana ey Seybold - External Body height 2023-02-10 13:23:00 162.6 cm Mary Tahira adamebodariusz - External Body weight 2023-02-10 13:23:00 52.98 kg Mary Tahira adamebold - External BMI 2023-02-10 13:23:00 20.05 kg/m2 Mary Tahira adamebold - External Oxygen saturation in 2023-02-10 13:23:00 100 /min Mary Way - Arterial blood by External Pulse oximetry Systolic blood 2022-02-17 13:44:00 96 mm[Hg] Mary Seybold pressure Diastolic blood 2022-02-17 13:44:00 56 mm[Hg] Kelse y Seybold pressure Heart rate 2022-02-17 13:44:00 81 /min Mary S eybold Body temperature 2022-02-17 13:44:00 36.39 Radha Dayana ey Seybold Respiratory rate 2022-02-17 13:44:00 14 /min Dayana ey Seybold Body height 2022-02-17 13:44:00 152.4 cm Mary S eybold Body weight 2022-02-17 13:44:00 50.803 kg Mary S eybold BMI 2022-02-17 13:44:00 21.87 kg/m2 Mary S eybold Systolic blood 2021-12-27 12:49:00 98 mm[Hg] Mary Seybold pressure Diastolic blood 2021-12-27 12:49:00 50 mm[Hg] Kelse y Seybold pressure Heart rate 2021-12-27 12:49:00 67 /min Mary S eybold Body temperature 2021-12-27 12:49:00 36.56 Radha Dayana ey Seybold Respiratory rate 2021-12-27 12:49:00 14 /min Dayana ey Seybold Body height 2021-12-27 12:49:00 152.4 cm Mary S eybold Body weight 2021-12-27 12:49:00 51.256 kg Mary S eybold BMI 2021-12-27 12:49:00 22.07 kg/m2 Mary S eybold Systolic blood 2021-12-02 14:41:00 104 mm[Hg] Mary Seybold pressure Diastolic blood 2021-12-02 14:41:00 60 mm[Hg] Kelse y Seybold pressure Heart rate 2021-12-02 14:41:00 93 /min Mary S eybold Body temperature 2021-12-02 14:41:00 36.56 Radha Dayana ey Seybold Respiratory rate 2021-12-02 14:41:00 14 /min Dayana ey Seybold Body height 2021-12-02 14:41:00 152.4 cm Mary S eybold Body weight 2021-12-02 14:41:00 49.896 kg Mary S eybold BMI 2021-12-02 14:41:00 21.48 kg/m2 Mary S eybold Systolic blood 2021-10-29 13:50:00 86 mm[Hg] Mary Seybold pressure Diastolic blood 2021-10-29 13:50:00 50 mm[Hg] Kelse y Seybold pressure Heart rate 2021-10-29 13:50:00 93 /min Mary Hillman eybold Body temperature 2021-10-29 13:50:00 36.67 Radha Dayana ey Seybold Respiratory rate 2021-10-29 13:50:00 14 /min Dayana ey Seybold Body height 2021-10-29 13:50:00 152.4 cm Mary Hillman eybold Body weight 2021-10-29 13:50:00 52.164 kg Mary Hillman eybold BMI 2021-10-29 13:50:00 22.46 kg/m2 Mary S eybold Systolic blood 2021-08-21 14:51:00 107 mm[Hg] Mary Seybold pressure Diastolic blood 2021-08-21 14:51:00 62 mm[Hg] Kelse y Seybold pressure Heart rate 2021-08-21 14:51:00 84 /min Mary Hillman eybold Body temperature 2021-08-21 14:51:00 37.33 Radha Dayana ey Seybold Respiratory rate 2021-08-21 14:51:00 14 /min Dayana adame Seybold Body height 2021-08-21 14:51:00 152.4 cm Mary Hillman eybold Body weight 2021-08-21 14:51:00 52.073 kg Mary Hillman eybold BMI 2021-08-21 14:51:00 22.42 kg/m2 Mary adamebold Oxygen saturation in 2021-08-21 14:51:00 98 /min Mary Beardybdanuta Arterial blood by Pulse oximetry height 2021-08-01 08:40:00 63 [in_i] [facility] weight 2021-08-01 08:40:00 119 [lb_av] [facility] temperature 2021-08-01 08:40:00 97.8 [degF] [facility] bmi 2021-08-01 08:40:00 21.08 kg/m2 [facility] - [facility] oximetry 2021-08-01 08:40:00 96 % [facility] - [facility] blood pressure 2021-08-01 08:40:00 129 mm[Hg] [facility] blood pressure 2021-08-01 08:40:00 62 mm[Hg] [facility] diastolic [facility] Systolic blood 2021-07-15 15:32:00 118 mm[Hg] Mary Seybold pressure Diastolic blood 2021-07-15 15:32:00 62 mm[Hg] Kelse y Seybold pressure Heart rate 2021-07-15 15:32:00 67 /min Mary S eybold Body temperature 2021-07-15 15:32:00 36 Radha Dayana ey Seybold Respiratory rate 2021-07-15 15:32:00 16 /min Dayana ey Seybold Body height 2021-07-15 15:32:00 152.4 cm Mary S eybold Body weight 2021-07-15 15:32:00 54.432 kg Mary S eybold BMI 2021-07-15 15:32:00 23.44 kg/m2 Mary S eybold Systolic blood 2021-06-17 13:02:00 104 mm[Hg] Mary Seybold pressure Diastolic blood 2021-06-17 13:02:00 52 mm[Hg] Kelse y Seybold pressure Heart rate 2021-06-17 13:02:00 75 /min Mary S eybold Body temperature 2021-06-17 13:02:00 36.17 Radha Dayana ey Seybold Respiratory rate 2021-06-17 13:02:00 16 /min Dayana ey Seybold Body height 2021-06-17 13:02:00 165.1 cm Mary S eybold Body weight 2021-06-17 13:02:00 52.164 kg Mary S eybold BMI 2021-06-17 13:02:00 19.14 kg/m2 Mary S eybold Systolic blood 2021-06-04 13:12:00 94 mm[Hg] Mary Seybold pressure Diastolic blood 2021-06-04 13:12:00 60 mm[Hg] Meleciose [address] pressure Heart rate 2021-06-04 13:12:00 83 /min Mary noguera Body temperature 2021-06-04 13:12:[address] Respiratory rate 2021-06-04 13:12:00 20 /min Dayana Way Body height 2021-06-04 13:12:00 165.1 cm Mary noguera Body weight 2021-06-04 13:12:00 53.343 kg Mary noguera BMI 2021-06-04 13:12:00 19.57 kg/m2 Mary noguera Procedures Procedure Date / Time Performed Performing Clinician Sourc e URINALYSIS NONAUTO W/O 2021-07-15 15:38:00 Winsome Howard Seguillaume SCOPE URINALYSIS NONAUTO W/O 2021-06-17 13:28:00 Winsome Howard SCOPE Encounters Start End Encounter Admission Attending Care Care Encounter Source Date/Time Date/Time Type Type Clinicians Facility Department ID [facility]09 [id number] Common 14:14:52 [id number] 2021-10-09 [facility] [id number] Common 14:14:17 Juanis [id number] [facility] 2023-05-02 2023-05-02 Outpatient MARY HOWARD [id number] Mary 00:00:00 00:00:00 WINSOME Seybol d 2023-04-10 2023-04-10 Outpatient MARY HOWARD [id number] Mary 00:00:00 00:00:00 WINSOME Seybol d 2023-04-09 2023-04-09 Outpatient MARY HERNANDEZ [id number] Mary 00:00:00 00:00:00 Seybol d 2023-04-06 2023-04-06 Outpatient TEMI CORMIER [id number] Mary 09:00:00 09:00:00 Seybol d 2023-04-03 2023-04-03 Outpatient MARY HOWARD [id number] Mary 00:00:00 00:00:00 WINSOME Seybol d 2023-04-02 2023-04-02 Outpatient HUNDL, MARY HERNANDEZ [id number] Mary 00:00:00 00:00:00 WINSOME Seybol d 2023-04-01 2023-04-01 Outpatient HUNDL, MARY HERNANDEZ [id number] Mary 00:00:00 00:00:00 WINSOME Seybol d 2023-02-17 2023-02-17 Outpatient HUNDL, MARY HERNANDEZ [id number] Mary 00:00:00 00:00:00 WINSOME Seybol d 2023-02-11 2023-02-11 Outpatient MARY HERNANDEZ [id number] Mary 00:00:00 00:00:00 Seybol d 2023-02-10 2023-02-10 Outpatient LAB90 MARY HERNANDEZ [id number] Mary 09:45:00 09:45:00 Seybol d 2023-02-10 2023-02-10 Outpatient HUNDL, MARY HERNANDEZ [id number] Mary 08:30:00 08:30:00 WINSOME Seybol d 2023-01-06 2023-01-06 Outpatient HUNDL, MARY HERNANDEZ [id number] Mary 00:00:00 00:00:00 WINSOME Seybol d 2023-01-06 2023-01-06 Outpatient HUNDL, MARY HERNANDEZ [id number] Mary 00:00:00 00:00:00 WINSOME Seybol d 2023-01-05 2023-01-05 Outpatient HUNDL, MARY HERNANDEZ [id number] Mary 00:00:00 00:00:00 WINSOME Seybol d 2022-12-02 2022-12-02 Outpatient HUNDL, MARY HERNANDEZ [id number] Mary 00:00:00 00:00:00 WINSOME Seybol d 2022-10-07 2022-10-07 Outpatient HUNDL, MARY HERNANDEZ [id number] Mary 00:00:00 00:00:00 WINSOME Seybol d 2022-09-29 2022-09-29 Outpatient HUNDL, MARY HERNANDEZ [id number] Mary 00:00:00 00:00:00 WINSOME Seybol d 2022-08-29 2022-08-29 Outpatient HUNDL, MARY HERNANDEZ [id number] Mary 00:00:00 00:00:00 WINSOME Seybol d 2022-08-25 2022-08-25 Outpatient HUNDL, MARY HERNANDEZ [id number] Mary 00:00:00 00:00:00 WINSOME Seybol d 2022-06-16 2022-06-16 Outpatient HUNDL, MARY HERNANDEZ [id number] Mary 00:00:00 00:00:00 WINSOEM Seybol d 2022-05-26 2022-05-26 Outpatient HUNDL, MARY HERNANDEZ [id number] Mary 00:00:00 00:00:00 WINSOME Seybol d 2022-03-24 2022-03-24 Outpatient HUNDL, MARY HERNANDEZ [id number] Mary 00:00:00 00:00:00 WINSOME Seybol d 2022-03-24 2022-03-24 Outpatient HUNDL, MARYALBERTO HERNANDEZ [id number] Mary 00:00:00 00:00:00 WINSOME Seybol d 2022-03-13 2022-03-13 Outpatient HUNDL, MARY HERNANDEZ [id number] Mary 00:00:00 00:00:00 WINSOME Seybol d 2022-02-19 2022-02-19 Outpatient HUNDL, MARY HERNANDEZ [id number] Mary 00:00:00 00:00:00 WINSOME Seybol d 2022-02-19 2022-02-19 Outpatient HUNDL, MARY HERNANDEZ [id number] Mary 00:00:00 00:00:00 WINSOME Seybol d 2022-02-17 2022-02-17 Office Hundl Palacio [id number] Mary 08:30:00 09:00:00 Visit Winsome Loyd [id number] Se guillaume [id number] 2022-02-17 2022-02-17 Outpatient HUNDL, MARY HERNANDEZ [id number] Mary 08:30:00 08:30:00 WINSOME Seybol d 2022-01-17 2022-01-17 Outpatient YOSELYN ALMODOVAR MARY HERNANDEZ [id number] Mary 00:00:00 00:00:00 Seybol d 2022-01-08 2022-01-08 Outpatient BESTDelfin MARY HERNANDEZ [id number] Mary 00:00:00 00:00:00 WINSOME Seybol d 2021-12-27 2021-12-27 Outpatient LAB90 MARY HERNANDEZ [id number] Mary 09:15:00 09:15:00 Seybol d 2021-12-27 2021-12-27 Office [facility] sweet [id number] Mary 08:00:00 09:00:00 Visit Winsome Loyd [id number] Se guillaume [id number] 2021-12-26 2021-12-26 Outpatient ANITA, MARY HERNANDEZ [id number] Mary 00:00:00 00:00:00 WINSOME Seybol d 2021-12-12 2021-12-12 Outpatient LAB90 MARY HERNANDEZ [id number] Mary 08:20:00 08:20:00 Seybol d 2021-12-10 2021-12-10 Outpatient LAB90 MARY HERNANDEZ [id number] Mary 08:15:00 08:15:00 Seybol d 2021-12-06 2021-12-06 Outpatient MAYR HOWARD [id number] Mary 00:00:00 00:00:00 WINSOME Seybol d 2021-12-04 2021-12-04 Outpatient MARY HOWARD [id number] Mary 00:00:00 00:00:00 WINSOME Seybol d 2021-12-04 2021-12-04 Outpatient MARY HOWARD [id number] Mary 00:00:00 00:00:00 WINSOME Seybol d 2021-12-03 2021-12-03 Outpatient MARY HOWARD [id number] Mary 08:30:00 08:30:00 WINSOME Seybol d 2021-12-02 2021-12-02 Office Hundl, Palacio 1.2.840.114 [id number] Mary 10:00:00 10:30:00 Visit Winsome Loyd 350.1.13.13 Se ybold 1.2.7.2.686 [id number] 2021-10-29 2021-10-29 Office Temi Howard [id number] Mary 08:00:00 08:30:00 Visit Winsome Loyd 350.1.13.13 Se ybold 1.2.7.2.686 [id number] 2021-09-23 2021-09-23 Outpatient MARY HERNANDEZ [id number] Mary 00:00:00 00:00:00 Seybol d 2021-09-11 2021-09-11 Laboratory Only, Ang Db Test [facility] 1.2.8 40.114 [id number] Univers 09:30:00 09:45:00 Only Tony Basil [facility] 350.1.13.10 [facility] 4.2.7.2.686 Phil as ELIZABETH?BLEA [id number] [address] MEDICAL OFFICE [facility] 2021-09-11 2021-09-11 Outpatient R [facility] [id number] Univers 09:30:00 09:30:00 [id number] [facility] 2021-09-11 2021-09-11 [facility] [id number] Univers 09:30:00 09:30:00 BASIL [facility] 2021-08-21 2021-08-21 Office Temi Howard 1.2.840.114 [id number] Mary 09:00:00 09:30:00 Visit Winsome Loyd 350.1.13.13 Se ybold 1.2.7.2.686 [id number] 2021-08-19 2021-08-19 Outpatient MARY HOWARD [id number] Mary 00:00:00 00:00:00 WINSOME Seybol d 2021-08-19 2021-08-19 Outpatient MARY HOWARD [id number] Mary 00:00:00 00:00:00 WINSOME Seybol d 2021-08-01 2021-08-01 [facility] [id number] Co mmon 00:00:00 00:00:00 VISIT NEW Spir it PT LEVEL 3 - [facility] 2021-07-29 2021-07-29 Outpatient MARY HOWARD [id number] Mary 00:00:00 00:00:00 WINSOME Seybol d 2021-07-25 2021-07-25 Outpatient MARY HOWARD [id number] Mary 00:00:00 00:00:00 WINSOME Seybol d 2021-07-25 2021-07-25 Outpatient ANITA MARY HERNANDEZ [id number] Mary 00:00:00 00:00:00 WINSOME Seybol d 2021-07-23 2021-07-23 Outpatient LAB90 MARY HERNANDEZ [id number] Mary 08:10:00 08:10:00 Seybol d 2021-07-18 2021-07-18 Outpatient LAB90 MARY HERNANDEZ [id number] Mary 11:40:00 11:40:00 Seybol d 2021-07-18 2021-07-18 Outpatient ANITA MARY HERNANDEZ [id number] Mary 00:00:00 00:00:00 WINSOME Seybol d 2021-07-17 2021-07-17 Outpatient YOSELYN ALMODOVAR [id number] Mary 10:00:00 10:00:00 Seybol d 2021-07-17 2021-07-17 Outpatient MARY HOWARD [id number] Mary 00:00:00 00:00:00 WINSOME Seybol d 2021-07-15 2021-07-15 Office Temi Howard [id number] Mary 10:09:44 10:39:44 Visit Winsome Loyd [id number] Se ybold [id number] 2021-06-26 2021-06-26 Outpatient YOSELYN ALMODOVAR [id number] Mary 00:00:00 00:00:00 Seybol d 2021-06-17 2021-06-17 Office Temi Howard [id number] Mary 07:53:26 08:23:26 Visit Winsome Loyd [id number] Se ybold [id number] 2021-06-04 2021-06-04 Office Temi Howard [id number] Mary 08:08:32 08:38:32 Visit Winsome Loyd [id number] Se ybold [id number] [id number] 2021-05-28 2021-05-28 Outpatient MARY HOWARD [id number] Mary 08:00:00 08:00:00 WINSOME Seybol d 2021-05-04 2021-05-04 Outpatient YOSELYN ALMODOVAR [id number] Mary 00:00:00 00:00:00 Seybol d 2021-04-09 2021-04-09 Outpatient LESLI HERNANDEZ [id number] Mary 00:00:00 00:00:00 MD MARIA GUADALUPE Seybol d 2021-04-02 2021-04-02 Outpatient YOSELYN ALMODOVAR 100 [id number] Mary 00:00:00 00:00:00 Seybol d 2021-04-02 2021-04-02 Outpatient YOSELYN ALMODOVAR [id number] Mary 00:00:00 00:00:00 Seybol d 2021-03-28 2021-03-28 Outpatient YOSELYN ALMODOVAR 100 [id number] Mary 00:00:00 00:00:00 Seybol d 2020-09-18 2020-09-18 Laboratory Lab, Adc Fam Pob I [facility] [id number]. [id number] Univers 09:07:26 09:27:26 Only Loida Tucker [facility] [id number] itmarvin ortiz [place] [id number] Phil as Professio [id number] Ut dical nal 044 [facility] 2020-09-18 2020-09-18 Outpatient EUGENIE CHAPARROMB [facility] [id number] Univers 09:20:00 09:20:00 LOIDA payan [facility] 2019-06-30 2019-06-30 Outpatient Oxana Daiglet [id number] Common 09:30:00 09:30:00 [facility] Results Test Description Test Time Test Comments Results Result Comments Source URINALYSIS NONAUTO W/O SCOPE 2021-07-15 15:38:00 Test Item Value Reference Range Interpretation Comme nts UD KETONES (test code = neg 5-160 147899) UD GLUCOSE (test code = neg 100-2000 397018) UD PROTEIN (test code = neg Trace - 2000 mg/dL 668663) UD LEUKOCYTES (test code = neg Trace - Large @ 2 958933) min. UD NITRITE (test code = neg Neg. - Pos. @ 60 635791) sec. UD UROBILINOGEN (test code = 0.2 mg/dL 0.2-8 222613) UD PH (test code = 016796) See_Comment [Automated message] The system which ge nerated this result tra nsmitted reference range : 5.0 - 8.5 @ 60 sec.. The reference range was not used to interpr et this result as normal/abnormal . UD BLOOD (test code = 966006) moderate Neg. - Large @ 60 sec. UD SPECIFIC GRAVITY (test See_Comment [ Automated message] The code = 822996) system which generated this result tra nsmitted reference range : 1.000 - 1.030 @ 45 sec. . The reference range was not used to interpr et this result as normal/abnormal . UD BILIRUBIN (test code = neg Neg. - Large @ 45 489554) sec. Lab Interpretation (test code Abnormal = 65980-7) Mary BeardyboldURINALYSIS NONAUTO W/O [id number] 13:28:00 Test Item Value Reference Range Interpretation Comments UD KETONES (test code = neg 5-160 582264) UD GLUCOSE (test code = neg 100-2000 971221) UD PROTEIN (test code = neg Trace - 2000 mg/dL 805148) UD LEUKOCYTES (test large Trace - Large @ 2 code = 870392) min. UD NITRITE (test code = neg Neg. - Pos. @ 60 737921) sec. UD UROBILINOGEN (test 0.2 mg/dL 0.2-8 code = 656465) UD PH (test code = See_Comment [Automat ed 132037) message] The sy stem which generated this result transmitted reference range : 5.0 - 8.5 @ 60 sec.. The refer ence range was not u sed to interpret th is result as normal/abnormal . UD BLOOD (test code = large Neg. - Large @ 60 808241) sec. UD SPECIFIC GRAVITY See_Comment [Automa rhonda (test code = 177283) message ] The system which generated this result transmitted reference range : 1.000 - 1.030 @ 45 sec.. The refer ence range was not u sed to interpret th is result as normal/abnormal . UD BILIRUBIN (test code neg Neg. - Large @ 45 = 772921) sec. Lab Interpretation Abnormal (test code = 21554-4) Mary Way
--- NOTE | 2023-05-11 19:32 | RAD REPORT ---
EXAM DESCRIPTION: RAD - Chest Single View - 05/11/2023 7:27 pm CLINICAL HISTORY: RIB PAIN - RIGHT Chest pain. COMPARISON: Chest Pa And Lat (2 Views) dated 02/18/2022; Chest Pa And Lat (2 Views) dated 10/14/2019; C hest Pa And Lat (2 Views) dated 09/28/2018; CHEST PA AND LAT 2 VIEW dated 11/23/2007 FINDINGS: Portable technique limits examination quality. The lungs are emphysematous but grossly clear. The heart is normal in size. No displaced fractures. IMPRESSION: No acute intrathoracic process suspected.
--- NOTE | 2023-05-11 19:34 | RAD REPORT ---
EXAM DESCRIPTION: RAD - Elbow Right 3 View - 05/11/2023 7:27 pm CLINICAL HISTORY: PAIN COMPARISON: Elbow Right 2 View dated 04/11/2015; Elbow Right 3 View dated 04/08/2015 FINDINGS: Hardware is noted in the olecranon. No acute fracture or dislocation.
--- NOTE | 2023-05-11 19:45 | ER ---
Nurse's Notes [facility] Name: Bee Humphrey Age: 72 yrs Sex: Female : 1950 Arrival Date: 05/11/2023 Time: 17:21 Bed IW4 Private MD: Diagnosis: Fall on same level from slipping, tripping and stumbling without subsequent striking against object;Contusion of right elbow;Chest pain, unspecified-right chest wall Presentation: 05/11 18:09 Chief complaint: Patient states: "Around 1630 today, I tripped while walking and fell. iw I hit my chest and right elbow. It's swollen and hurts. I just feel sore. Coronavirus screen: At this time, the client does not indicate any symptoms associated with coronavirus-19. Ebola Screen: No symptoms or risks identified at this time. Initial Sepsis Screen: Does the patient meet any 2 criteria? No. Patient's initial sepsis screen is negative. Does the patient have a suspected source of infection? No. Patient's initial sepsis screen is negative. Risk Assessment: Do you want to hurt yourself or someone else? Patient reports no desire to harm self or others. Onset of symptoms was May 11, 2023. 18:09 Method Of Arrival: Ambulatory iw 18:09 Acuity: SUN 4 iw Triage Assessment: 18:12 General: Appears uncomfortable, Behavior is calm, cooperative. Pain: Complains of pain iw in chest and right arm Pain does not radiate. Pain Quality of pain is described as aching, Pain began suddenly, Is continuous. Neuro: Brandt Agitation-Sedation Scale (RASS): 0 - Alert and Calm. Derm: Bruising that is dark purple, on right arm. Historical: - Allergies: 18:10 Sulfa (Sulfonamide Antibiotics); iw - Home Meds: 18:10 None [Active]; iw - PMHx: 18:10 None; iw - PSHx: 18:10 right elbow; iw - Immunization history:: Adult Immunizations up to date. - Social history:: Smoking status: Patient denies any tobacco usage or history of. Vital Signs: 18:09 BP 136 / 76; Pulse 80; Resp 18; Temp 98.2; Pulse Ox 100% on R/A; Weight 48.99 kg; iw Height 5 ft. 5 in. ; 18:09 Body Mass Index 17.97 (48.99 kg, 165.1 cm) iw ED Course: 17:24 Patient arrived in ED. mg5 17:48 [facility] kb 17:48 Gautam Uribe MD is Attending Physician. kb 18:10 Triage completed. iw 18:10 Arm band placed on. iw 19:28 Elbow Right 3 View XRAY In Process Unspecified. EDMS 19:29 Chest Single View XRAY In Process Unspecified. EDMS Administered Medications: No medications were administered Outcome: 19:45 Discharge ordered by . kb 19:58 Discharged to home ambulatory, with family. me1 19:58 Condition: stable 19:58 Discharge instructions given to patient, by provider Instructed on discharge instructions, follow up and referral plans. 19:59 Patient left the ED. me1 Signatures: Dispatcher [employer] EDMS Ev Loyd FNP-C FNP-Aleta Erickson RN RN Lorrie Singer RN RN me1 Manju Ascencio mg5 Corrections: (The following items were deleted from the chart) 18:12 18:10 PMHx: None; iw
--- NOTE | 2023-05-11 19:45 | EDPHYS ---
Physician Documentation [facility] Name: Bee Humphrey Age: 72 yrs Sex: Female : 1950 Arrival Date: 05/11/2023 Time: 17:21 Bed IW4 Private MD: ED Physician Gautam Uribe HPI: 05/11 19:40 This 72 yrs old Female presents to ER via Ambulatory with complaints of Chest Pain, kb Fall Injury, Breathing Difficulty. 19:40 Details of fall: The patient fell from an upright position, while walking. Onset: The kb symptoms/episode began/occurred just prior to arrival. Associated injuries: The patient sustained injury to the chest, specifically the anterior aspect of right upper chest, pain with movement, tenderness, right elbow, contusion, painful injury, swelling. Severity of symptoms: At their worst the symptoms were moderate, in the emergency department the symptoms are unchanged. The patient has not experienced similar symptoms in the past. The patient has not recently seen a physician. Pt reports she tripped outside of [place] and hit her elbow and right chest. . Historical: - Allergies: 18:10 Sulfa (Sulfonamide Antibiotics); iw - Home Meds: 18:10 None [Active]; iw - PMHx: 18:10 None; iw - PSHx: 18:10 right elbow; iw - Immunization history:: Adult Immunizations up to date. - Social history:: Smoking status: Patient denies any tobacco usage or history of. ROS: 19:38 Constitutional: Negative for fever, chills, and weight loss. kb 19:38 Cardiovascular: Positive for chest pain, with movement, of the anterior aspect of right upper chest. 19:38 MS/extremity: Positive for pain, swelling, tenderness, of the right elbow. 19:38 All other systems are negative. Exam: 19:38 Constitutional: This is a well developed, well nourished patient who is awake, alert, kb and in no acute distress. Head/Face: Normocephalic, atraumatic. ENT: Moist Mucous membranes Cardiovascular: Regular rate and rhythm with a normal S1 and S2. No gallops, murmurs, or rubs. No pulse deficits. Respiratory: Respirations even and unlabored. No increased work of breathing. Talking in full sentences Abdomen/GI: Soft, non-tender. No distention Skin: Warm, dry with normal turgor. Normal color. Neuro: Awake and alert, GCS 15, oriented to person, place, time, and situation. Moves all extremities. Normal gait. 19:38 Chest/axilla: Inspection: normal, Palpation: tenderness, that is mild, of the anterior aspect of right upper chest. 19:38 Musculoskeletal/extremity: Extremities: grossly normal except: noted in the right elbow: decreased ROM, pain, swelling, tenderness, ROM: limited active range of motion due to pain, Circulation is intact in all extremities. Sensation intact. Weight bearing: able to fully bear weight. Vital Signs: 18:09 BP 136 / 76; Pulse 80; Resp 18; Temp 98.2; Pulse Ox 100% on R/A; Weight 48.99 kg; iw Height 5 ft. 5 in. ; 18:09 Body Mass Index 17.97 (48.99 kg, 165.1 cm) iw MDM: 18:08 Patient medically screened. kb 19:38 Differential diagnosis:. Data reviewed: vital signs, nurses notes. kb 19:42 Differential diagnosis: contusion, fracture, strain. Counseling: I had a detailed kb discussion with the patient and/or guardian regarding the historical points, exam findings, and any diagnostic results supporting the discharge/admit diagnosis, radiology results, the need for outpatient follow up, a family practitioner, to return to the emergency department if symptoms worsen or persist or if there are any questions or concerns that arise at home. 05/11 18:11 Order name: Elbow Right 3 View XRAY; Complete Time: 19:35 kb 05/11 18:11 Order name: Chest Single View XRAY; Complete Time: 19:34 kb Administered Medications: No medications were administered Disposition Summary: 05/11/23 19:45 Discharge Ordered Location: Home kb Condition: Stable kb Diagnosis - Fall on same level from slipping, tripping and stumbling without subsequent kb striking against object - Contusion of right elbow kb - Chest pain, unspecified - right chest wall kb Followup: kb - With: Emergency Department - When: As needed - Reason: Worsening of condition Followup: kb - With: Private Physician - When: 2 - 3 days - Reason: Recheck today's complaints, Continuance of care, Re-evaluation by your physician Discharge Instructions: - Discharge Summary Sheet kb - Chest Wall Pain, [id number] kb - Contusion, Nuow-ju-Hgit kb - Elbow Contusion, [id number] kb Forms: - Medication Reconciliation Form kb - Thank You Letter kb - Antibiotic Education kb - Prescription Opioid Use kb - Patient Portal Instructions kb - Leadership Thank You Letter kb Signatures: Dispatcher [employer] Ev Drew, Aleta Lu RN RN iw Corrections: (The following items were deleted from the chart) 18:12 18:10 PMHx: None; iw iw
[2023-05-11 20:26] VITALS: BP 136/76; TEMP 98.2; O2SAT 100
== END 2023-05-11 19:59 | disposition home or self-care (01) ==
LOC: ER 17:21
DX: R07.89 Other chest pain (principal); S50.01XA Contusion of right elbow, initial encounter; W01.0XXA Fall on same level from slipping, tripping and stumbling without subsequent striking against object, initial encounter; Z88.2 Allergy status to sulfonamides
CPT/HCPCS: 71045; 99282